=== PATIENT | female | born 1990 | race Caucasian/White ===

== ENCOUNTER 2016-08-26 16:42 | Inpatient (IN) | payer MEDICAID ==
[2016-08-26] VITALS (20 sets, daily range): BP systolic 90–142; BP diastolic 43–100; PULSE 63–93; RESP 20
[~2016-08-26] VITALS: Ht 152.4 cm; Wt 64.0 kg
[~2016-08-26 16:42] MED LIST: DIPHTH/TETANUS/ACEL PERTUSSIS (BOOSTER) 0.5 ML VIAL/PFS IM ONE; MEASLES, MUMPS, RUBELLA VACCINE 0.5 ML VIAL SQ ONE; ONDA4 PO; RANI150 PO
[2016-08-26] MEDS: LACTATED RINGER'S 1000 ML INJ 1,000 ML IV SCH ×2 (17:41→20:08)
[2016-08-26] MEDS ORDERED: LACTATED RINGER'S 1000 ML INJ 1,000 ML IV PRN (17:41)
[2016-08-26] MEDS ORDERED: MINERAL OIL 10 ML VIAL TOPICAL PRN (17:45)
[2016-08-26] MEDS ORDERED: LIDOCAINE HCL 1% 50 ML VIAL I-DERMAL PRN (17:45)
[2016-08-26] MEDS ORDERED: LIDOCAINE HCL 1% 50 ML VIAL INFIL PRN (17:45)
[2016-08-26] MEDS ORDERED: OXYTOCIN 30 UNITS-500ML PREMIX 500 ML IV ONE (17:45)
[2016-08-26] MEDS ORDERED: SODIUM CHLORID 0.9% 500 ML INJ 500 ML IV PRN (17:45)
[2016-08-26] MEDS ORDERED: CITRIC ACID-SODIUM CITRATE LIQ 30 ML UDC PO SCH (17:45)
--- NOTE | 2016-08-26 17:56 | PD ---
HPI Chief Complaint pain Date Seen: Aug 26, 2016 Travel History International Travel<30 Days: No Contact w/Intl Traveler<30Days: No History of Present Illness HPI Patient is a 26-year-old 38-39 weeks gestation presents combining of labor pains, denies ruptured membranes or bleeding. Baby is has a reactive heart rate tracing and she is luis fernando regularly. Para: 1 : 2 History Obstetric History Obstetric History One vaginal delivery Social History Narrative Social History Patient speaks no Iranian her significant other does Alcohol Use: No Tobacco Use: No Substance Abuse: No Allergies-Medications (Allergen,Severity, Reaction): Coded Allergies: No Known Allergies (Unverified , 09/11/14) Home Meds Active Scripts Ondansetron Hcl (Zofran 4 Mg Tab)4 Mg Tab4 Mg PO Q8 #15 TAB Prov:Wayne Napoles MD 09/11/14 Ranitidine Hcl (Zantac)150 Mg Abx128 Mg PO BID 14 Days Prov:Wayne Napoles MD 09/11/14 Review of Systems General / Constitutional: No: Fever, Weight Gain, Chills, Other Physical Exam Narrative GENERAL: Well-nourished, well-developed patient. SKIN: Warm and dry. HEAD: Normocephalic and atraumatic. EYES: No scleral icterus. No injection or drainage. ENT: No nasal drainage noted. Mucous membranes pink. Airway patent. NECK: Supple, trachea midline. No JVD. CARDIOVASCULAR: Regular rate and rhythm without murmurs, gallops, or rubs. RESPIRATORY: Breath sounds equal bilaterally. No accessory muscle use. BREASTS: Bilateral exam showed no masses , no retractions, no nipple discharge. ABDOMEN/GI: Abdomen soft, non-tender, bowel sounds present, no rebound, no guarding Gravid to [-term] weeks size Fundal Height: [37 cm-] GENITOURINARY: External Genitalia: intact and normal in appearance BUS glands: [-] Cervix: [] Dilatation: [-5 cm] Effacement: [50-] Station: [-3] Presentation: [vtx-] Membranes: [intact ] Uterine Contractions: [reg-] FHT's: Category: [-1] Baseline: [-144] Reactive: [yes-] Variability: [-mod] Decels: [none-] EXTREMITIES: No cyanosis or edema. BACK: Nontender without obvious deformity. No CVA tenderness. NEUROLOGICAL: Awake and alert. Motor and sensory grossly within normal limits. Five out of 5 muscle strength in all muscle groups. Normal speech. Data Data Orders Group B Strep Pcr (08/26/16 17:19) Ob (2e) Additional Admit Info (08/26/16 17:31) Group B Beta Strep Scrn (Gbs) (08/26/16 17:40) Admit To Inpatient (08/26/16 ) Code Status (08/26/16 17:41) Vital Signs (Adult) .Per protocol (08/26/16 17:41) Activity Oob Ad Amada (08/26/16 17:41) ^ Heart (08/26/16 17:41) ^ Amnioinfusion (08/26/16 17:41) Urinary Catheter Management .ONCE (08/26/16 17:41) Diet Liquid (08/26/16 Dinner) Lactated Ringer's 1000 Ml Inj (Lr 1000 M (08/26/16 17:41) Lactated Ringer's 1000 Ml Inj (Lr 1000 M (08/26/16 17:41) Sodium Chlorid 0.9% 500 Ml Inj (Ns 500 M (08/26/16 17:45) Sodium Chlor 0.9% 1000 Ml Inj (Ns 1000 M (08/26/16 18:01) Lidocaine 1% Inj (50 Ml) (Xylocaine 1% I (08/26/16 17:45) Citric Acid-Sodium Citrate Liq (Bicitra (08/26/16 17:45) Fentanyl Inj (Fentanyl Inj) (08/26/16 17:45) Fentanyl Inj (Fentanyl Inj) (08/26/16 17:45) Penicillin G Potassium Inj (Pfizerpen-G (08/26/16 18:00) Penicillin G Potassium Inj (Pfizerpen-G (08/26/16 22:00) Complete Blood Count With Diff (08/26/16 17:41) Hold Clot (08/26/16 17:41) Abo/Rh Blood Type (08/26/16 17:41) Urinalysis - C+S If Indicated (08/26/16 17:41) Resp Oxygen Non Rebreathe Mask (08/26/16 ) ^ Epidural / Intrathecal Infus (08/26/16 17:41) Oxytocin 30 Units-500ml Premix (Pitocin (08/26/16 17:45) Lidocaine 1% Inj (50 Ml) (Xylocaine 1% I (08/26/16 17:45) Light Mineral Oil (Muri-Lube Oil) (08/26/16 17:45) Inpatient Certification (08/26/16 ) Specimen To Be Collected PRN (08/26/16 17:41) MDM Interpretation(s) Patient is a 26-year-old at 3839 weeks presents complaining of labor pains, denies bleeding or rupture the membranes. The heart rate tracing is reactive and contractions are regular patient received her care out of town but lives in [place] Plan Plan to admit the patient for labor augment as needed anticipate vaginal delivery Diagnosis Diagnosis: Primary Impression: Abdominal pain during in third trimester Abad Moore II, MD Aug 26, 2016 17:56
[2016-08-26] MEDS ORDERED: PENICILLIN G POTASSIUM INJ 5,000,000 UNITS in SODIUM CHLORIDE 0.9% INJ 100 ML IV ONE (18:00)
[2016-08-26] MEDS ORDERED: SODIUM CHLOR 0.9% 1000 ML INJ 1,000 ML IV PRN (18:01)
--- NOTE | 2016-08-26 18:03 | HHI.HP ---
HPI Chief Complaint Contractions Date Seen: Aug 26, 2016 Travel History International Travel<30 Days: No Contact w/Intl Traveler<30Days: No Known Affected Area: No History of Present Illness HPI Patient is a 26-year-old at 38/3 weeks gestation presents to the [facility] ED with a chief complaints of contractions that started around 6 AM this morning. The contractions happen every 5 minutes. Patient denies rupture of membranes but did have bloody show with some vaginal discharge. Patient denies vaginal bleeding, copious vaginal discharge, and endorses positive movement. She gets care with Dr. Jacob. According to patient's , all labs were within normal limits. Para: 1 : 2 Miscarriage: 0 : 0 History Past Medical History Medical History: Denies Significant Hx Past Surgical History Surgical History: No Previous Surgery Family History Narrative Family History Dad had diabetes Social History Alcohol Use: No Tobacco Use: No Substance Abuse: No Allergies-Medications (Allergen,Severity, Reaction): Coded Allergies: No Known Allergies (Unverified , 09/11/14) Home Meds Active Scripts Ondansetron Hcl (Zofran 4 Mg Tab)4 Mg Tab4 Mg PO Q8 #15 TAB Prov:Wayne Napoles MD 09/11/14 Ranitidine Hcl (Zantac)150 Mg Qzs400 Mg PO BID 14 Days Prov:Wayne Napoles MD 09/11/14 Review of Systems Except as stated in HPI: all other systems reviewed are Neg General / Constitutional: No: Fever Eyes: No: Visual changes Cardiovascular: No: Edema Respiratory: No: Short of Breath Gastrointestinal: No: Nausea, Vomiting, Diarrhea Physical Exam Narrative GENERAL: Well-nourished, well-developed patient. SKIN: Warm and dry. HEAD: Normocephalic and atraumatic. EYES: No scleral icterus. No injection or drainage. ENT: No nasal drainage noted. Mucous membranes pink. Airway patent. NECK: Supple, trachea midline. No JVD. CARDIOVASCULAR: Regular rate and rhythm without murmurs, gallops, or rubs. RESPIRATORY: Breath sounds equal bilaterally. No accessory muscle use. ABDOMEN/GI: Abdomen soft, non-tender, bowel sounds present, no rebound, no guarding Gravid to 38 weeks size Fundal Height: Consistent with 38 weeks size GENITOURINARY: External Genitalia: intact and normal in appearance Cervix: Soft and stretchy, posterior Dilatation: 4-5 Effacement: 50% Station:-3 Presentation: Vertex Membranes: intact Uterine Contractions: Present, moderate, every 6-7 minutes FHT's: Category: 1 Baseline: 150 Reactive: Up to 160 Variability: Present Decels: None EXTREMITIES: No cyanosis or edema. BACK: Nontender without obvious deformity. No CVA tenderness. NEUROLOGICAL: Awake and alert. Motor and sensory grossly within normal limits. Five out of 5 muscle strength in all muscle groups. Normal speech. Data Data Vital Signs Reviewed: Yes Orders Group B Strep Pcr (08/26/16 17:19) Ob (2e) Additional Admit Info (08/26/16 17:31) Group B Beta Strep Scrn (Gbs) (08/26/16 17:40) Admit To Inpatient (08/26/16 ) Code Status (08/26/16 17:41) Vital Signs (Adult) .Per protocol (08/26/16 17:41) Activity Oob Ad Amada (08/26/16 17:41) ^ Heart (08/26/16 17:41) ^ Amnioinfusion (08/26/16 17:41) Urinary Catheter Management .ONCE (08/26/16 17:41) Diet Liquid (08/26/16 Dinner) Lactated Ringer's 1000 Ml Inj (Lr 1000 M (08/26/16 17:41) Lactated Ringer's 1000 Ml Inj (Lr 1000 M (08/26/16 17:41) Sodium Chlorid 0.9% 500 Ml Inj (Ns 500 M (08/26/16 17:45) Sodium Chlor 0.9% 1000 Ml Inj (Ns 1000 M (08/26/16 18:01) Lidocaine 1% Inj (50 Ml) (Xylocaine 1% I (08/26/16 17:45) Citric Acid-Sodium Citrate Liq (Bicitra (08/26/16 17:45) Fentanyl Inj (Fentanyl Inj) (08/26/16 17:45) Fentanyl Inj (Fentanyl Inj) (08/26/16 17:45) Penicillin G Potassium Inj (Pfizerpen-G (08/26/16 18:00) Penicillin G Potassium Inj (Pfizerpen-G (08/26/16 22:00) Complete Blood Count With Diff (08/26/16 17:41) Hold Clot (08/26/16 17:41) Abo/Rh Blood Type (08/26/16 17:41) Urinalysis - C+S If Indicated (08/26/16 17:41) Resp Oxygen Non Rebreathe Mask (08/26/16 ) ^ Epidural / Intrathecal Infus (08/26/16 17:41) Oxytocin 30 Units-500ml Premix (Pitocin (08/26/16 17:45) Lidocaine 1% Inj (50 Ml) (Xylocaine 1% I (08/26/16 17:45) Light Mineral Oil (Muri-Lube Oil) (08/26/16 17:45) Inpatient Certification (08/26/16 ) Specimen To Be Collected PRN (08/26/16 17:41) Assessment/Plan Assessment and Plan 26-year-old at 38/3 weeks gestation with no significant past medical history presents in labor. Intrauterine -Category 1 tracing -reassuring -Membranes intact -GBS PCR pending PLAN -Admit -IV fluid hydration -CBC type and screen -GBS prophylaxis if GBS positive -Epidural at patient's request -Anticipate vaginal delivery Seen and examined with Dr. Askew Discharge Planning Anticipate discharge in 2-3 days Saskia Beltre MD R1 Aug 26, 2016 18:03
--- NOTE | 2016-08-26 18:23 | PD.LABORPN ---
Subjective Subjective AROM - minimal fluid seen no mec noted , IUPC /FSE inserted cx 4-5/70/-3/vtx FHT - reactive hypoactive CTXs will likely need pitocin aug. Objective Objective Pelvic Exam: Cervix: [-4-5] Dilatation: [-] Effacement: [70-] Station: [-3] Presentation: [-]vtx Membranes: ruptured] AROM clear minimal fluid return Uterine Contractions: [spaced out-] FHT's: Category: [1-] Baseline: [-144] Reactive: [yes-] Variability: [mod-] Decels: [-none] Assessment/Plan Assessment and Plan doing well , augment prn Abad Moore II, MD Aug 26, 2016 18:23
[2016-08-26] MEDS ORDERED: CALNTAB (18:51)
[2016-08-26] MEDS ORDERED: prenata (18:51)
[2016-08-26 19:07] LABS: BASOPHIL % 0.3 % (0.0-2.0); EOSINOPHIL % 0.5 % (0.0-4.0); HEMATOCRIT 38.3 % (35.0-46.0); HEMO FLAGS DIFF FINAL; LYMPH % 15.5 % (9.0-44.0); LYMPHOCYTE # 1.4 TH/MM3 (1.0-4.8); MEAN CELL VOLUME 88.2 FL (80.0-100.0); MEAN CORPUSCULAR HEMOGLOBIN 29.4 PG (27.0-34.0); MEAN CORPUSCULAR HGB CONC 33.3 % (32.0-36.0); MONO % 7.8 % (0.0-8.0); NEUT % 75.9 % (16.0-70.0); PLATELET COUNT 196 TH/MM3 (150-450); RED BLOOD COUNT 4.34 MIL/MM3 (4.00-5.30); RED CELL DISTRIBUTION WIDTH 15.4 % (11.6-17.2); WHITE BLOOD COUNT 9.3 TH/MM3 (4.0-11.0)
[2016-08-26] MEDS ORDERED: fentaNYL 2MCG-BUPIV 0.125% INJ 100 ML ONE (19:13)
[2016-08-26] MEDS ORDERED: OXYTOCIN 30 UNITS-500ML PREMIX 500 ML IV SCH (19:15)
[2016-08-26 19:20] LABS: BACTERIA, URINE RARE /hpf; BLOOD, URINE MOD (NEG); COMMENT (UR) CULTURE INDICATED; CULTURE IF INDICATED CULTURE INDICATED; GLUCOSE,URINE NEG (NEG); KETONE, URINE NEG (NEG); MUCUS URINE FEW /lpf (OCC); NITRITE,URINE NEG (NEG); PH, URINE 6.5 (5.0-8.5); SQUAMOUS EPITHELIAL CELL URINE 6 /hpf (0-5); URINE COLOR YELLOW (YELLW/STRAW)
[2016-08-26] MEDS ORDERED: ePHEDrine/NS 50 MG/5 ML SYR IV PRN (20:30)
[2016-08-26] MEDS ORDERED: NO SYSTEM NARCOTICS XX PRN (20:30)
[2016-08-26] MEDS ORDERED: fentaNYL 2MCG-BUPIV 0.125% INJ 100 ML EPIDURAL SCH (20:30)
[2016-08-26] MEDS ORDERED: DO NOT ADMINISTER ANTICOAGULANTS XX PRN (20:30)
[2016-08-26] MEDS ORDERED: PENICILLIN G POTASSIUM INJ 2,500,000 UNITS in SODIUM CHLORIDE 0.9% INJ 100 ML IV SCH (22:00)
[2016-08-26] MEDS ORDERED: OXYTOCIN 10 UNIT/ML AMP ONE (23:31)
--- NOTE | 2016-08-26 23:49 | PD.OB.DELI ---
Delivery Date: Aug 26, 2016 Anesthesia: Epidural Episiotomy: None Vaginal Delivery: Normal, Spontaneous Presentation: Occiput anterior Nuchal Cord: x1 Infant: Male, Single One Minute : 4 Five Minute : 8 Weight: 3350g Care: Suctioned, Responded to stimulation, Blow-by O2 delivered Placenta: Spontaneous delivery, Intact, 3 vessel cord Laceration: Perineal laceration, 2 deg Repair: Chromic running (2-0) Additional Information Spontaneous vaginal delivery. Nuchal cord x1. Placenta delivered intact, spontaneously. 2nd degree laceration repaired Henry Ramires MD R1 Aug 26, 2016 23:49
[2016-08-27] VITALS (9 sets, daily range): BP systolic 102–119; BP diastolic 59–83; PULSE 69–106; RESP 16–18; TEMP 97.7–98.7
[2016-08-27] MEDS ORDERED: SODIUM CHLORIDE 0.9% FLUSH 5 ML FLUSH IV PRN
[2016-08-27] MEDS ORDERED: ACETAMINOPHEN 325 MG TAB PO PRN
[2016-08-27] MEDS ORDERED: BENZOCAINE 20% TOPICAL SPRAY 60 ML CAN TOPICAL PRN
[2016-08-27] MEDS ORDERED: ONDANSETRON ODT 4 MG TAB PO PRN
[2016-08-27] MEDS ORDERED: ZOLPIDEM TARTRATE 5 MG TAB PO PRN
[2016-08-27] MEDS ORDERED: DOCUSATE SODIUM 50 MG/SENNA 8.6 MG TAB PO PRN
[2016-08-27] MEDS ORDERED: WITCH HAZEL 50%/GLYCERIN 12.5% 40 PAD JAR TOPICAL PRN
[2016-08-27] MEDS ORDERED: ALUMINUM/MAGNESIUM/SIMETH 30 ML CUP PO PRN
--- NOTE | 2016-08-27 08:12 | HHI.OB ---
Subjective Post Day: 1 Remarks day #1. AFVSS overnight. Pain well-controlled. Decreased lochia. Denies dysuria. No breast tenderness. She is feeding the baby via breast. Appetite good. No nausea or vomiting. Endorses flatus. No bowel movement. Ambulating well. Denies calf pain, shortness of breath, or cough. Otherwise, she is doing well this morning and has no other complaints. Objective Vitals/I&O Vital Signs Date Time Temp Pulse Resp B/P Pulse Ox O2 Delivery O2 Flow Rate FiO2 08/27/16 02:15 98.2 71 18 108/64 08/27/16 01:50 18 08/27/16 00:45 18 08/27/16 00:31 90 102/59 08/27/16 00:26 18 08/27/16 00:15 98.7 08/27/16 00:15 90 18 108/63 08/27/16 00:00 106 119/83 08/26/16 23:45 106/65 08/26/16 23:45 77 08/26/16 23:30 93 08/26/16 23:30 113/62 08/26/16 23:00 91 113/72 08/26/16 22:45 77 99/51 08/26/16 22:30 72 108/57 08/26/16 22:15 63 98/52 08/26/16 22:00 67 103/61 08/26/16 21:45 66 101/58 08/26/16 20:16 90/43 08/26/16 20:16 81 08/26/16 20:09 20 08/26/16 20:00 71 08/26/16 20:00 103/54 08/26/16 19:55 68 08/26/16 19:48 75 108/59 08/26/16 19:45 72 113/58 08/26/16 19:42 109/64 08/26/16 19:40 126/68 08/26/16 19:40 71 08/26/16 19:37 134/67 08/26/16 19:36 20 08/26/16 19:35 77 08/26/16 19:31 142/100 08/26/16 19:15 20 08/26/16 18:14 80 112/72 Objective Remarks GENERAL: Well-nourished, well-developed patient. CARDIOVASCULAR: Regular rate and rhythm without murmurs, gallops, or rubs. RESPIRATORY: Breath sounds equal bilaterally. No accessory muscle use. ABDOMEN/GI: Abdomen soft, non-tender. Fundus: Firm, non-tender at umbilicus. GENITOURINARY: Light to moderate bleeding. EXTREMITIES: No cyanosis or edema, non-tender, without signs of DVT. Medications and IVs Current Medications Medications (Trade) Dose Ordered Sig/Abram Route Start Time Stop Time Status Last Admin Lactated Ringer's 1,000 ml @ 125 mls/hr Q8H IV 08/26/16 17:41 08/26/16 20:08 Lactated Ringer's 1,000 ml @ 3,000 mls/hr Q20M PRN IV 08/26/16 17:41 08/26/16 20:08 (NS 1000 ml Inj) 1,000 ml @ 100 mls/hr Q10H PRN IV 08/26/16 18:01 (fentaNYL INJ) 50 mcg Q1H PRN IV PUSH 08/26/16 17:45 Fentanyl Citrate 100 mcg 100 mcg Q1H PRN IV PUSH 08/26/16 17:45 08/26/16 18:28 (Pfizerpen-G Inj/ NS Inj) 100 ml @ 200 mls/hr Q4H IV 08/26/16 22:00 Mineral Oil 10 ml 10 ml UNSCH PRN TOPICAL 08/26/16 17:45 (Pitocin 30 Units-NS 500 ml Premix) 500 ml @ 0 mls/hr TITRATE IV 08/26/16 19:15 Miscellaneous Information No systemic narcotics to be given except... UNSCH PRN XX 08/26/16 20:30 08/27/16 20:29 Miscellaneous Information DO NOT ADMINISTER ANY ANTICOAGUL... UNSCH PRN XX 08/26/16 20:30 08/27/16 20:29 (fentaNYL 2MCG-BUPIV 0.125% INJ) 100 ml @ 0 mls/hr TITRATE EPIDURAL 08/26/16 20:30 (ePHEDrine/NS 50 MG/5 ML SYR) 10 mg UNSCH PRN IV 08/26/16 20:30 08/27/16 20:29 (NS Flush) 2 ml BID IV 08/27/16 09:00 (NS Flush) 2 ml UNSCH PRN IV 08/27/16 00:00 (Tylenol) 650 mg Q4H PRN PO 08/27/16 00:00 (Motrin) 600 mg Q6H PRN PO 08/27/16 00:00 (Americaine 20% Top Spr) 1 spray Q4H PRN TOPICAL 08/27/16 00:00 (Tucks Pads) 1 applic QID PRN TOPICAL 08/27/16 00:00 (Katty-Colace) 2 tab Q12H PRN PO 08/27/16 00:00 (Ambien) 5 mg HS PRN PO 08/27/16 00:00 (Mag-Al Plus Susp Liq) 15 ml Q8H PRN PO 08/27/16 00:00 (Zofran Odt) 4 mg Q6H PRN PO 08/27/16 00:00 Assessment/Plan Assessment and Plan 26 y/o who is PPD#1 s/p . -Continue routine care. -Percocet and Motrin PRN pain. -Encouraged OOB. Advised pelvic rest for 6 wks. -Will need a f/u appt. within 6 wks. -Re: ctrl, she would like Depo -D/c in 1-2 more days. wdw OB attending Discharge Planning Anticipate discharge in 1-2 days Henry Ramires MD R1 Aug 27, 2016 08:11
[2016-08-27] MEDS ORDERED: SODIUM CHLORIDE 0.9% FLUSH 5 ML FLUSH IV SCH (09:00)
--- NOTE | 2016-08-27 09:05 | HHI.OB ---
Subjective Post Day: 1 Remarks Patient is a normal routine vaginal delivery doing well on day 1, she is normal bowel bladder function tolerating her diet and ambulating well. Continue progressive care and plan discharge for tomorrow patient seen with the family medicine residents agree with their evaluation and plan. Objective Vitals/I&O Vital Signs Date Time Temp Pulse Resp B/P Pulse Ox O2 Delivery O2 Flow Rate FiO2 08/27/16 02:15 98.2 71 18 108/64 08/27/16 01:50 18 08/27/16 00:45 18 08/27/16 00:31 90 102/59 08/27/16 00:26 18 08/27/16 00:15 98.7 08/27/16 00:15 90 18 108/63 08/27/16 00:00 106 119/83 08/26/16 23:45 106/65 08/26/16 23:45 77 08/26/16 23:30 93 08/26/16 23:30 113/62 08/26/16 23:00 91 113/72 08/26/16 22:45 77 99/51 08/26/16 22:30 72 108/57 08/26/16 22:15 63 98/52 08/26/16 22:00 67 103/61 08/26/16 21:45 66 101/58 08/26/16 20:16 90/43 08/26/16 20:16 81 08/26/16 20:09 20 08/26/16 20:00 71 08/26/16 20:00 103/54 08/26/16 19:55 68 08/26/16 19:48 75 108/59 08/26/16 19:45 72 113/58 08/26/16 19:42 109/64 08/26/16 19:40 126/68 08/26/16 19:40 71 08/26/16 19:37 134/67 08/26/16 19:36 20 08/26/16 19:35 77 08/26/16 19:31 142/100 08/26/16 19:15 20 08/26/16 18:14 80 112/72 Objective Remarks GENERAL: Well-nourished, well-developed patient. CARDIOVASCULAR: Regular rate and rhythm without murmurs, gallops, or rubs. RESPIRATORY: Breath sounds equal bilaterally. No accessory muscle use. ABDOMEN/GI: Abdomen soft, non-tender. Fundus: Firm, non-tender at umbilicus. GENITOURINARY: Light to moderate bleeding. EXTREMITIES: No cyanosis or edema, non-tender, without signs of DVT. Medications and IVs Current Medications Medications (Trade) Dose Ordered Sig/Abram Route Start Time Stop Time Status Last Admin Lactated Ringer's 1,000 ml @ 125 mls/hr Q8H IV 08/26/16 17:41 08/26/16 20:08 Lactated Ringer's 1,000 ml @ 3,000 mls/hr Q20M PRN IV 08/26/16 17:41 08/26/16 20:08 (NS 1000 ml Inj) 1,000 ml @ 100 mls/hr Q10H PRN IV 08/26/16 18:01 (fentaNYL INJ) 50 mcg Q1H PRN IV PUSH 08/26/16 17:45 Fentanyl Citrate 100 mcg 100 mcg Q1H PRN IV PUSH 08/26/16 17:45 08/26/16 18:28 (Pfizerpen-G Inj/ NS Inj) 100 ml @ 200 mls/hr Q4H IV 08/26/16 22:00 Mineral Oil 10 ml 10 ml UNSCH PRN TOPICAL 08/26/16 17:45 (Pitocin 30 Units-NS 500 ml Premix) 500 ml @ 0 mls/hr TITRATE IV 08/26/16 19:15 Miscellaneous Information No systemic narcotics to be given except... UNSCH PRN XX 08/26/16 20:30 08/27/16 20:29 Miscellaneous Information DO NOT ADMINISTER ANY ANTICOAGUL... UNSCH PRN XX 08/26/16 20:30 08/27/16 20:29 (fentaNYL 2MCG-BUPIV 0.125% INJ) 100 ml @ 0 mls/hr TITRATE EPIDURAL 08/26/16 20:30 (ePHEDrine/NS 50 MG/5 ML SYR) 10 mg UNSCH PRN IV 08/26/16 20:30 08/27/16 20:29 (NS Flush) 2 ml BID IV 08/27/16 09:00 (NS Flush) 2 ml UNSCH PRN IV 08/27/16 00:00 (Tylenol) 650 mg Q4H PRN PO 08/27/16 00:00 (Motrin) 600 mg Q6H PRN PO 08/27/16 00:00 (Americaine 20% Top Spr) 1 spray Q4H PRN TOPICAL 08/27/16 00:00 (Tucks Pads) 1 applic QID PRN TOPICAL 08/27/16 00:00 (Katty-Colace) 2 tab Q12H PRN PO 08/27/16 00:00 (Ambien) 5 mg HS PRN PO 08/27/16 00:00 (Mag-Al Plus Susp Liq) 15 ml Q8H PRN PO 08/27/16 00:00 (Zofran Odt) 4 mg Q6H PRN PO 08/27/16 00:00 Assessment/Plan Assessment and Plan 26 y/o who is PPD#1 s/p . -Continue routine care. -Percocet and Motrin PRN pain. -Encouraged OOB. Advised pelvic rest for 6 wks. -Will need a f/u appt. within 6 wks. -Re: ctrl, she would like Depo -D/c in 1-2 more days. wdw OB attending Discharge Planning Anticipate discharge in 1-2 days Abad Moore II, MD Aug 27, 2016 09:04
[2016-08-27] MEDS: IBUPROFEN 600 MG TAB PO PRN ×2 (15:31→22:21)
[2016-08-28] MEDS: IBUPROFEN 600 MG TAB PO PRN ×2 (04:20→10:24)
[2016-08-28 05:30] VITALS: RESP 18
[2016-08-28] MEDS ORDERED: SENN1TAB PO (09:22)
[2016-08-28] MEDS ORDERED: IBUP-232 PO (09:22)
--- NOTE | 2016-08-28 09:22 | HHI.DCPOC ---
Discharge Care Plan Diagnosis: (1) Intrauterine (2) Abdominal pain during in third trimester Goals to Promote Your Health * To prevent worsening of your condition and complications * To maintain your health at the optimal level Directions to Meet Your Goals Take your medications as prescribed Follow your dietary instruction Follow activity as directed Keep your appointments as scheduled Take your immunizations and boosters as scheduled If your symptoms worsen call your PCP, if no PCP go to Urgent Care Center or Emergency Room Smoking is Dangerous to Your Health. Avoid second hand smoke Call the 24-hour hour crisis hotline for domestic abuse at Henry Ramires MD R1 Aug 28, 2016 09:22
--- NOTE | 2016-08-28 09:56 | HHI.OB ---
Subjective Remarks 26 y/o PPD 2 after . Doing well this morning. Pain well controlled. No bowel movement, has flatus. and doing well. She is interested in depo provera shot. She will follow up with OB in 6 weeks. No chest pain, shortness of breath, abdominal pain, calf tenderness. (Shalom Horowitz MD R2) Objective Vitals/I&O Vital Signs Date Time Temp Pulse Resp B/P Pulse Ox O2 Delivery O2 Flow Rate FiO2 08/28/16 05:30 18 08/27/16 19:30 69 16 112/64 08/27/16 19:30 97.7 Objective Remarks GENERAL: Well-nourished, well-developed patient. CARDIOVASCULAR: Regular rate and rhythm without murmurs, gallops, or rubs. RESPIRATORY: Breath sounds equal bilaterally. No accessory muscle use. ABDOMEN/GI: Abdomen soft, non-tender. Fundus: Firm, non-tender at umbilicus. GENITOURINARY: Light to moderate bleeding. EXTREMITIES: No cyanosis or edema, non-tender, without signs of DVT. Medications and IVs Current Medications Medications (Trade) Dose Ordered Sig/Abram Route Start Time Stop Time Status Last Admin Lactated Ringer's 1,000 ml @ 125 mls/hr Q8H IV 08/26/16 17:41 08/26/16 20:08 Lactated Ringer's 1,000 ml @ 3,000 mls/hr Q20M PRN IV 08/26/16 17:41 08/26/16 20:08 (NS 1000 ml Inj) 1,000 ml @ 100 mls/hr Q10H PRN IV 08/26/16 18:01 (fentaNYL INJ) 50 mcg Q1H PRN IV PUSH 08/26/16 17:45 Fentanyl Citrate 100 mcg 100 mcg Q1H PRN IV PUSH 08/26/16 17:45 08/26/16 18:28 (Pfizerpen-G Inj/ NS Inj) 100 ml @ 200 mls/hr Q4H IV 08/26/16 22:00 Mineral Oil 10 ml 10 ml UNSCH PRN TOPICAL 08/26/16 17:45 Oxytocin 500 ml @ 0 mls/hr TITRATE IV 08/26/16 19:15 (fentaNYL 2MCG-BUPIV 0.125% INJ) 100 ml @ 0 mls/hr TITRATE EPIDURAL 08/26/16 20:30 (NS Flush) 2 ml BID IV 08/27/16 09:00 (NS Flush) 2 ml UNSCH PRN IV 08/27/16 00:00 (Tylenol) 650 mg Q4H PRN PO 08/27/16 00:00 (Motrin) 600 mg Q6H PRN PO 08/27/16 00:00 08/28/16 04:20 (Americaine 20% Top Spr) 1 spray Q4H PRN TOPICAL 08/27/16 00:00 (Tucks Pads) 1 applic QID PRN TOPICAL 08/27/16 00:00 (Katty-Colace) 2 tab Q12H PRN PO 08/27/16 00:00 08/27/16 22:21 (Ambien) 5 mg HS PRN PO 08/27/16 00:00 (Mag-Al Plus Susp Liq) 15 ml Q8H PRN PO 08/27/16 00:00 (Zofran Odt) 4 mg Q6H PRN PO 08/27/16 00:00 (Shalom Horowitz MD R2) Assessment/Plan Assessment and Plan 26 y/o who is PPD#2 s/p . -Continue routine care. -Percocet and Motrin PRN pain. Will send home with Motrin. -Encouraged OOB. Advised pelvic rest for 6 wks. -Will need a f/u appt. within 6 wks. -Re: ctrl, she would like Depo-Provera -D/c today dw Dr. Chapman Discharge Planning Anticipate discharge today (Shalom Horowitz MD R2) Attending Attestation The exam, history, and the medical decision-making described in the above note were completed with the assistance of the resident provider. I reviewed and agree with the findings presented. I attest that I had a [id number] encounter with the patient on the same day, and personally performed and documented my assessment and findings in the medical record. (Geovanna Chapman MD) Shalom Horowitz MD R2 Aug 28, 2016 09:56 Geovanna Chapman MD Aug 28, 2016 10:06
[2016-08-29] MEDS ORDERED: INFLUENZA VIRUS VACCINE (QUADRIVALENT) 0.5 ML SYR IM ONE (10:00)
== END 2016-08-28 14:19 | disposition home or self-care (01) | DRG 775 ==
LOC: HOBED 16:42 → H2EA 17:31 → H1EA 08-27 01:45
PROVIDERS: ADMIT Obstetrics & Gynecology Maternal & Fetal Medicine; ATTEND Obstetrics & Gynecology Maternal & Fetal Medicine
PROC: 10E0XZZ Delivery of Products of Conception, External Approach (ICD-10-PCS; principal; 2016-08-26)
PROC: 0KQM0ZZ Repair Perineum Muscle, Open Approach (ICD-10-PCS; 2016-08-26)
PROC: 10H07YZ Insertion of Other Device into Products of Conception, Via Natural or Artificial Opening (ICD-10-PCS; 2016-08-26)
PROC: 3E0S3CZ (ICD-10-PCS; 2016-08-26)
PROC: 00HU33Z Insertion of Infusion Device into Spinal Canal, Percutaneous Approach (ICD-10-PCS; 2016-08-26)
PROC: 10907ZC Drainage of Amniotic Fluid, Therapeutic from Products of Conception, Via Natural or Artificial Opening (ICD-10-PCS; 2016-08-26)
DX: O70.1 Second degree perineal laceration during delivery (principal); Z37.0 Single live birth; O69.81X0 Labor and delivery complicated by cord around neck, without compression, not applicable or unspecified; Z3A.38 38 weeks gestation of pregnancy; Z23 Encounter for immunization
CPT/HCPCS: 81001; 84112; 85025; 86900; 86901; 87081; 87086; 87150; 90686; 90715; 99285; J2590; J3010; J7120; Q2038